=== PATIENT | female | born 1955 | race Asian ===

== ENCOUNTER 2024-11-13 11:30 | Emergency (ER) | payer MEDICARE, MEDICAID ==
[~2024-11-13] VITALS: Ht 157.5 cm; Wt 61.4 kg
[2024-11-13 11:36] VITALS: TEMP 97.6
[2024-11-13] MEDS ORDERED: ATOR20TA PO (11:36)
[2024-11-13] MEDS ORDERED: AMLO-257 PO (11:36)
[2024-11-13] MEDS ORDERED: METO25XL PO (11:36)
[2024-11-13] MEDS ORDERED: METF-1211 PO (11:36)
[2024-11-13] MEDS ORDERED: LOSA-381 PO (11:36)
[2024-11-13 12:13] LABS: PLATELET COUNT (AUTO) 327 K/uL (150-450); RED BLOOD CELL COUNT(AUTO) 4.35 MIL/uL (4.00-5.20); RED CELL DISTRIBUTION WIDTH 14.4 % (11.5-14.5); WHITE BLOOD COUNT (AUTO) 8.8 K/uL (4.5-11.0)
[2024-11-13 12:24] LABS: CALCIUM, TOTAL 8.6 mg/dL (8.8-10.5); CREATININE 0.91 mg/dL (0.60-1.30); GLOMERULAR FILTR. RATE CALC > 60 mL/min (>60); GLUCOSE,RANDOM 89 mg/dL (70-110); SODIUM SERUM 138 mmol/L (136-145); UREA NITROGEN, BLOOD 15 mg/dL (7-18)
[2024-11-13 12:29] LABS: ASPARTATE AMINOTRANSFERASE 21.0 U/L (15-37); CREATINE KINASE, TOTAL ONLY 111.0 U/L (26-192); TOTAL PROTEIN, SERUM 8.1 g/dL (6.4-8.2); TROPONIN I-HIGH SENSITIVITY 20 ng/L (<51)
[2024-11-13] MEDS: ACETAMINOPHEN 325 MG TABLET PO ONE (12:38)
[2024-11-13 13:18] VITALS: BP 126/71; PULSE 75; RESP 18; O2SAT 99
== END 2024-11-13 13:19 | disposition home or self-care (01) ==
LOC: EMS 11:30
DX: R07.89 Other chest pain (principal); E78.00 Pure hypercholesterolemia, unspecified; I10 Essential (primary) hypertension; Z79.899 Other long term (current) drug therapy
CPT/HCPCS: 71045; 80048; 80076; 82550; 83880; 84484; 85025; 93005; 99285; 36415-L1; 36415-TC